=== PATIENT | female | born 1990 | race American Indian/Alaskan Native ===

== ENCOUNTER 2019-10-21 13:58 | Outpatient (CLI) | payer MEDICAID ==
[2019-10-21 15:28] VITALS: BP 113/72
[2019-10-21] MEDS ORDERED: LACTATED RINGERS 1,000 ML IV SCH (16:00)
--- NOTE | 2019-10-21 16:31 | Event Note ---
Date: 10/21/19 (Sharp Abdominal pain) IUP @ 30 weeks presents to triage for abdominal pain all day. She reports nausea vomiting 2 days ago and diarrhea 1 day ago, which have both resolved. She reports intercourse less than 24 hrs ago. She denies bleeding or lOF and reports movement. Hx of term 04/2018 Cat I tracing, contractions q 2-4 mins, RUQ pain, VS stable, afebrile, UTI UA, 1 Liter LR bolus, CBC, CMP, Discontinue FFN due to intercourse, 1 dose subcutaneous Terb, 650 mg po Acetaminophen Prescription for macrobid, take as prescribed. Increase water intake, decrease intake of greasy foods. NOthing in the vagina and no intercourse until seen at both appts. Avoid tub baths and shower only. Keep appt in office on 11/04/2019 and call M to confirm her next appt. [facility], reviewed labor precautions
[2019-10-21] MEDS ORDERED: LACTATED RINGERS 500 ML IV ONE (17:19)
[2019-10-21 17:26] LABS: Hematocrit 38.7 % (30.3-42.9); Hemoglobin 12.8 gm/dl (10.1-14.3); Mean Corpuscular HGB Conc 33 % (30-34); Mean Corpuscular Volume 91 fl (79-97); Platelet Count 192 K/mm3 (140-440); Red Blood Count 4.24 M/mm3 (3.65-5.03); Red Cell Distribution Width 13.6 % (13.2-15.2)
[2019-10-21 17:45] LABS: Bacteria,Urine 1+ /HPF (Negative); Bilirubin,Urine NEG (Negative); Blood,Urine NEG (Negative); Color,Urine Amber (Yellow); Mucus,Urine 3+ /HPF; Urobilinogen,Urine < 2.0 mg/dL (<2.0)
[2019-10-21 17:49] LABS: Alanine Aminotransferase 9 units/L (7-56); Blood Urea Nitrogen 4 mg/dL (7-17); Calcium 10.1 mg/dL (8.4-10.2); Hemolysis Index 16
[2019-10-21] MEDS ORDERED: ACETAMINOPHEN 325 MG TAB PO ONE (18:00)
[2019-10-21] MEDS ORDERED: TERBUTALINE 1 MG/1 ML INJ SUB-Q SCH (18:00)
[2019-10-21 18:19] LABS: BUN/Creatinine Ratio 8
== END 2019-10-21 19:01 | disposition home or self-care (01) ==
LOC: TRG 13:58 → APU 13:58 → TRG 19:01
PROVIDERS: ATTEND Obstetrics & Gynecology
DX: O26.893 Other specified pregnancy related conditions, third trimester (principal); R10.30 Lower abdominal pain, unspecified; O47.03 False labor before 37 completed weeks of gestation, third trimester; O99.513 Diseases of the respiratory system complicating pregnancy, third trimester; J45.909 Unspecified asthma, uncomplicated; Z3A.30 30 weeks gestation of pregnancy
CPT/HCPCS: 36415; 59025; 80053; 81001; 82731; 85027; 96360; 96361; 96372; J3105; J7120

== ENCOUNTER 2019-11-04 16:02 | Outpatient (CLI) | payer MEDICAID ==
[2019-11-04] MEDS ORDERED: LACTATED RINGERS 500 ML IV ONE (16:39)
[2019-11-04 16:40] VITALS: BP 128/65
[2019-11-04 17:41] LABS: Bilirubin,Urine NEG (Negative); Blood,Urine NEG (Negative); Color,Urine Yellow (Yellow); Mucus,Urine FEW /HPF; Protein,Urine <15 mg/dL mg/dL (Negative); Urobilinogen,Urine < 2.0 mg/dL (<2.0)
[2019-11-04] MEDS ORDERED: LACTATED RINGERS 1,000 ML IV SCH (18:00)
== END 2019-11-04 19:15 | disposition home or self-care (01) ==
LOC: APU 16:02 → TRG 16:02
PROVIDERS: ATTEND Obstetrics & Gynecology
DX: O26.893 Other specified pregnancy related conditions, third trimester (principal); R10.9 Unspecified abdominal pain; M54.9 Dorsalgia, unspecified; O47.03 False labor before 37 completed weeks of gestation, third trimester; Z3A.32 32 weeks gestation of pregnancy
CPT/HCPCS: 59025; 81001; 96360; J7120

== ENCOUNTER 2019-12-01 16:38 | Outpatient (CLI) | payer MEDICAID ==
[2019-12-01] MEDS ORDERED: LACTATED RINGERS 1,000 ML ONE (18:07)
[2019-12-01 19:04] VITALS: BP 116/58
[2019-12-01 19:24] LABS: Bacteria,Urine 1+ /HPF (Negative); Bilirubin,Urine NEG (Negative); Blood,Urine NEG (Negative); Color,Urine Amber (Yellow); Mucus,Urine FEW /HPF; Urobilinogen,Urine < 2.0 mg/dL (<2.0)
[2019-12-01] MEDS ORDERED: LACTATED RINGERS 1,000 ML IV SCH (20:00)
--- NOTE | 2019-12-01 20:24 | Event Note ---
Date: 12/01/19 Pt states she had contractions after having some stress with the father of the child. Pt noted to have pain with movement while provider was at the bedside. Pt noted to be having regular contractions. cx is 1/long/-3/post. Pt advised that she will get procardia as she is not in active labor and get IVFs and if have resolution of sx will be able to be d/c home. Pt expressed understanding and agrees with plan of care.
[2019-12-01] MEDS ORDERED: LACTATED RINGERS 1,000 ML IV ONE (20:49)
[2019-12-01] MEDS ORDERED: NIFEdipine*For Tocolysis only* 10 MG CAPSULE PO ONE (20:50)
== END 2019-12-01 21:35 | disposition home or self-care (01) ==
LOC: TRG 16:38 → APU 16:40 → TRG 21:35
PROVIDERS: ATTEND Obstetrics & Gynecology
DX: O62.9 Abnormality of forces of labor, unspecified (principal); Z3A.36 36 weeks gestation of pregnancy
CPT/HCPCS: 59025; 81001; 96360; 96361; J7120